=== PATIENT | female | born 1965 | race Caucasian/White ===

== ENCOUNTER 2024-06-08 06:17 | Inpatient (IN) | payer MEDICAID ==
[2024-06-08] VITALS (19 sets, daily range): BP systolic 120–163; BP diastolic 71–92; PULSE 60–90; RESP 11–19; TEMP 96.9–98.8; O2SAT 90–99
[~2024-06-08] VITALS: Ht 162.6 cm; Wt 81.8 kg
[2024-06-08 09:04] LABS: BILIRUBIN,URINE NEGATIVE (Neg); COLOR,URINE YELLOW (Yellow); GLUCOSE, URINE NEGATIVE (Neg); KETONES,URINE NEGATIVE (Neg); LEUKOCYTE ESTERASE ,URINE NEGATIVE (Neg); NITRITES, URINE NEGATIVE (Neg); OCCULT BLOOD,URINE MODERATE (Neg); PH,URINE 6.5 (4.8-8.0); PROTEIN,URINE TRACE mg/dl (Neg); UROBILINOGEN,URINE 0.2 E.U/dL (0.2-1.0)
[2024-06-08 09:05] LABS: CLARITY,URINE SLIGHTLY CLOUDY (Clear)
[2024-06-08 09:06] LABS: UA COLLECTION TYPE CLN CATCH MIDSTREAM
[2024-06-08 09:12] LABS: BACTERIA,URINE NONE SEEN /HPF (Neg); RBC,URINE 20-50 /HPF (0-2); SQUAMOUS EPITHELIAL CELL,UR FEW /LPF (FEW); WBC,URINE 0-4 /HPF (0-4)
[2024-06-08] MEDS ORDERED: tamsulosin 0.4mg capsule PO SCH (09:25)
[2024-06-08 09:51] LABS: BASOPHILS # (AUTO) 0.1 X10'3 (0-0.2); EOSINOPHILS # (AUTO) 0.1 X10'3 (0-0.9); HEMATOCRIT 40.2 % (35.0-45.0); HEMOGLOBIN 13.6 g/dl (12.0-16.0); LYMPHOCYTES # (AUTO) 1.8 X10'3 (1.1-4.8); LYMPHOCYTES % (AUTO) 12.9 % (21-51); MEAN CORPUSCULAR HEMOGLOBIN 35.1 PG (27.0-31.0); MEAN CORPUSCULAR HGB CONC 33.8 g/dL (33.0-36.5); MEAN CORPUSCULAR VOLUME 103.8 FL (78-98); MONOCYTES # (AUTO) 1.4 X10'3 (0-0.9); MONOCYTES % (AUTO) 10.1 % (2-12); NEUTROPHILS # (AUTO) 10.5 X10'3 (1.8-7.7); PLATELET COUNT 222 X10'3 (140-440); RED BLOOD COUNT 3.88 X10'6 (4.20-5.60); RED CELL DISTRIBUTION WIDTH 14.2 % (11.5-14.5)
[2024-06-08] MEDS: tamsulosin 0.4mg capsule PO ONE (09:51)
[2024-06-08] MEDS: ketorolac trometh 15mg/ml vial 15 MG/ML ML IV ONE (09:51)
[2024-06-08] MEDS: normal saline 1000ML IV soln IVB ONE (09:51)
[2024-06-08] MEDS: meperidine/PF 100mg/ml syringe IV STA (09:52)
[2024-06-08 10:02] LABS: ALBUMIN 3.3 G/DL (3.4-5.0); ANION GAP 10 (8-16); BLOOD UREA NITROGEN 17 MG/DL (7-18); CALCIUM 8.6 MG/DL (8.5-10.1); CHLORIDE 106 MMOL/L (99-107); CREATININE 1.55 MG/DL (0.40-0.90); GLUCOSE 99 MG/DL (70-104); POTASSIUM 3.9 MMOL/L (3.5-5.1); SODIUM 142 MMOL/L (135-145); TOTAL CARBON DIOXIDE 26.1 MMOL/L (24-32); eCRCL 33 ML/MIN; eGFR 34 ML/MIN
[2024-06-08 10:03] LABS: LIPASE 19 U/L (16-77)
[2024-06-08] MEDS ORDERED: acetaminophen 325mg tablet PO PRN ×2 (10:45)
[2024-06-08] MEDS ORDERED: bisacodyl 10mg suppository rectal RC PRN (10:45)
[2024-06-08] MEDS ORDERED: acetaminophen 650mg rectal suppository RC PRN (10:45)
[2024-06-08] MEDS ORDERED: mag hydrox/Alum hydrox/simeth 30ml oral suspension PO PRN (10:45)
[2024-06-08] MEDS ORDERED: morphine 2 MG/ML inj. syringe IV PRN ×2 (10:45→15:30)
[2024-06-08] MEDS ORDERED: magnesium hydroxide 30ml (MOM) UD suspension PO PRN (10:45)
[2024-06-08] MEDS ORDERED: ipratropium/albuterol 3ml nebule NEB PRN (10:45)
[2024-06-08] MEDS ORDERED: diphenhydrAMINE 50 mg/ml inj IV PRN (10:45)
[2024-06-08] MEDS ORDERED: HYDROcodone/acetaminophen 10/325mg tab PO PRN (10:45)
[2024-06-08] MEDS ORDERED: diphenhydrAMINE 25mg capsule PO PRN (10:45)
[2024-06-08] MEDS ORDERED: ondansetron 4mg rapidly disintigrating tab PO PRN (10:45)
[2024-06-08] MEDS: normal saline 1000ml 1,000 ML IV SCH (11:11)
[2024-06-08 11:52] LABS: APTT 28 SECONDS (22-32); PROTHROMBIN TIME 10.3 SECONDS (9.0-12.0)
[2024-06-08 11:57] LABS: MAGNESIUM 1.7 MG/DL (1.5-2.4); PRO BRAIN NATRIURETIC PEPTIDE 864 PG/ML (0-125)
[2024-06-08 12:25] LABS: HEMOGLOBIN A1C 5.3 % (4.5-6.2)
[2024-06-08] MEDS: morphine 2 MG/ML inj. syringe IV PRN (13:22)
[2024-06-08 14:16] LABS: THYROID STIMULATING HORMONE 9.98 ulU/ml (0.34-4.50)
[2024-06-08 14:22] LABS: URINE AMPHETAMINE SCREEN NEGATIVE (Neg); URINE BARBITUATE SCREEN NEGATIVE (Neg); URINE BENZODIAZEPINES SCREEN NEGATIVE (Neg); URINE CANNABINOID SCREEN POSITIVE (Neg); URINE COCAINE SCREEN NEGATIVE (Neg); URINE METHADONE SCREEN NEGATIVE (Neg); URINE OPIATE SCREEN POSITIVE (Neg); URINE PHENCYCLIDINE SCREEN NEGATIVE (Neg)
[2024-06-08] MEDS ORDERED: midazolam 1 mg/ML 2ml injection ONE (15:19)
[2024-06-08] MEDS ORDERED: fentaNYL/PF 50MCG/1 ML 2ML syringe ONE (15:20)
[2024-06-08] MEDS ORDERED: iohexol 300 MG/1 ML 50ml polymer ONE (15:26)
[2024-06-08] MEDS ORDERED: meperidine/PF 25mg/ml syringe IV PRN ×2 (15:30)
[2024-06-08] MEDS ORDERED: enalaprilat dihydrate 2.5mg/2ml vial IV PRN (15:30)
[2024-06-08] MEDS ORDERED: morphine 4 MG/ML inj SYRINge IV PRN (15:30)
[2024-06-08] MEDS ORDERED: ondansetron/PF 4mg/2ml inj IV PRN (15:30)
[2024-06-08] MEDS ORDERED: proCHLORperazine 10 MG/2 ml inj IV PRN (15:30)
[2024-06-08] MEDS ORDERED: labetalol 20mg/4ml (5mg/ml) syringe IV PRN (15:30)
[2024-06-08] MEDS ORDERED: ringers solution, lacted 1,000 ML IV SCH (15:30)
[2024-06-08] MEDS ORDERED: ipratropium/albuterol 3ml nebule NEB ONE (15:35)
[2024-06-08] MEDS ORDERED: propofol 10mg/ml 20ml vial IV ONE (15:50)
[2024-06-08] MEDS: albuterol 2.5 MG/3 ML nebule NEB ONE (16:14)
[2024-06-08] MEDS ORDERED: phenazopyridine 100mg tablet PO PRN (16:15)
[2024-06-08] MEDS: meperidine/PF 25mg/ml syringe IV PRN (16:16)
[2024-06-08] MEDS: HYDROmorphone inj. 0.5 MG/0.5 ML DISP.SYRIN IV PRN (17:24)
[2024-06-08] MEDS: docusate sod 100mg capsule PO SCH (19:56)
[2024-06-08] MEDS: methylPREDNISolone sod succ/PF 40mg inj. IV SCH (19:56)
[2024-06-08] MEDS: HYDROcodone/acetaminophen 5mg/325mg tablet PO PRN (20:10)
[2024-06-08] MEDS ORDERED: temazepam 15mg capsule PO PRN (21:00)
[2024-06-09 02:00] VITALS: BP 161/99; PULSE 72; RESP 15; TEMP 98.3; O2SAT 95
[2024-06-09 06:00] VITALS: BP 162/96; PULSE 81; RESP 16; TEMP 98.3; O2SAT 95
[2024-06-09 07:12] LABS: BASOPHILS % (AUTO) 0.4 % (0-1); EOSINOPHILS % (AUTO) 0 % (0-6); HEMATOCRIT 38.2 % (35.0-45.0); HEMOGLOBIN 12.9 g/dl (12.0-16.0); LYMPHOCYTES # (AUTO) 0.8 X10'3 (1.1-4.8); LYMPHOCYTES % (AUTO) 8.2 % (21-51); MEAN CORPUSCULAR HEMOGLOBIN 35.2 PG (27.0-31.0); MEAN CORPUSCULAR HGB CONC 33.7 g/dL (33.0-36.5); MEAN CORPUSCULAR VOLUME 104.4 FL (78-98); MEAN PLATELET VOLUME 8.4 FL (7.4-10.4); MONOCYTES # (AUTO) 0.3 X10'3 (0-0.9); MONOCYTES % (AUTO) 3.3 % (2-12); NEUTROPHILS # (AUTO) 9.1 X10'3 (1.8-7.7); NEUTROPHILS % (AUTO) 88.1 % (42-75); PLATELET COUNT 222 X10'3 (140-440); RED BLOOD COUNT 3.66 X10'6 (4.20-5.60); RED CELL DISTRIBUTION WIDTH 13.8 % (11.5-14.5); WHITE BLOOD COUNT 10.3 X10'3 (4.5-11.0)
[2024-06-09 07:37] LABS: ALANINE AMINOTRANSFERASE 11 U/L (12-78); ALBUMIN 2.8 G/DL (3.4-5.0); ALBUMIN/GLOBULIN RATIO 0.8 (1.1-1.5); ALKALINE PHOSPHATASE 51 IU/L (46-116); ANION GAP 10 (8-16); ASPARTATE AMINO TRANSFERASE 6 U/L (10-37); BILIRUBIN,TOTAL 0.5 MG/DL (0.1-1.0); BLOOD UREA NITROGEN 16 MG/DL (7-18); BUN/CREATININE RATIO 14.3 (10.0-20.0); CALCIUM 8.4 MG/DL (8.5-10.1); CHLORIDE 107 MMOL/L (99-107); CHOL/HDL RATIO 3.3 (0.00-4.99); CHOLESTEROL 190 MG/DL (0-200); CREATININE 1.12 MG/DL (0.40-0.90); GLUCOSE 115 MG/DL (70-104); HDL CHOLESTEROL 58 MG/DL (35-60); LDL CHOLESTEROL 113 MG/DL (50-100); POTASSIUM 3.8 MMOL/L (3.5-5.1); SODIUM 139 MMOL/L (135-145); TOTAL CARBON DIOXIDE 21.8 MMOL/L (24-32); TOTAL PROTEIN 6.1 G/DL (6.4-8.2); TRIGLYCERIDES 59 MG/DL (20-135); eCRCL 46 ML/MIN; eGFR 50 ML/MIN
[2024-06-09] MEDS: pantoprazole 40mg Tablet.DR PO SCH (08:10)
[2024-06-09] MEDS: CefTRIAXone/D5W-Rocephin 1gm 50 ML IV SCH (08:11)
[2024-06-09] MEDS: HYDROcodone/acetaminophen 10/325mg tab PO ONE (10:28)
[2024-06-09] MEDS: azithromycin/NS 500mg/250ml 250 ML IV SCH (10:29)
[2024-06-09 11:15] VITALS: BP 185/122; PULSE 82
[2024-06-09] MEDS: ondansetron/PF 4mg/2ml inj IV PRN (12:03)
[2024-06-09] MEDS ORDERED: ESCI20TA PO (12:20)
[2024-06-09] MEDS ORDERED: SYN0.088T PO (12:20)
[2024-06-09] MEDS ORDERED: LISI20TA28 PO (12:20)
[2024-06-09 12:42] VITALS: BP 154/99
[2024-06-09] MEDS ORDERED: HYDR-3965 PO (14:54)
[2024-06-09 14:57] VITALS: BP_SYST 159; PULSE 80
[2024-06-09] MEDS ORDERED: LEVO-65 PO (14:57)
[2024-06-09] MEDS: lisinopril 10 MG tablet PO SCH (14:57)
[2024-06-09] MEDS: ESCITALOPRAM 10 mg tablet 10 MG TABLET PO SCH (14:57)
[2024-06-09] MEDS: levoTHYROXINE 88mcg tablet PO SCH (14:57)
[2024-06-09 15:07] VITALS: RESP 14; O2SAT 94
[2024-06-10] MEDS ORDERED: levoTHYROXINE 88mcg tablet PO SCH (14:00)
== END 2024-06-09 15:50 | disposition home or self-care (01) | DRG 465 ==
LOC: ER 06:18 → ED HOLD 11:08 → PACU 16:07 → ORTHO 4S 17:00
PROVIDERS: ADMIT Family Medicine; ATTEND Family Medicine
PROC: BT1F1ZZ Fluoroscopy of Left Kidney, Ureter and Bladder using Low Osmolar Contrast (ICD-10-PCS; 2024-06-08)
PROC: 0T778DZ Dilation of Left Ureter with Intraluminal Device, Via Natural or Artificial Opening Endoscopic (ICD-10-PCS; principal; 2024-06-08 15:50)
DX: N13.2 Hydronephrosis with renal and ureteral calculous obstruction (principal); N17.9 Acute kidney failure, unspecified; E88.09 Other disorders of plasma-protein metabolism, not elsewhere classified; J44.1 Chronic obstructive pulmonary disease with (acute) exacerbation; F32.A Depression, unspecified; E03.9 Hypothyroidism, unspecified; I10 Essential (primary) hypertension; F17.210 Nicotine dependence, cigarettes, uncomplicated; Z90.49 Acquired absence of other specified parts of digestive tract
CPT/HCPCS: 36415; 71045; 74420; 80048; 80053; 80061; 80305; 81001; 83036; 83605; 83690; 83735; 83880; 84100; 84443; 85025; 85610; 85730; 87040; 87081; 93005; 94760; 99291; A4615; A4618; C1758; C1769; C2617; G0378; J0456; J0696; J1171; J1885; J2175; J2250; J2270; J2405; J2704; J2919; J3010; J7030; J7120; Q9967